=== PATIENT | female | born 1955 | race Native Hawaiian/Other Pacific Islander ===

== ENCOUNTER → 2017-04-28 | Outpatient (CLI) | payer MEDICARE, MEDICAID ==
[~2017-04-28] VITALS: Ht 162.6 cm; Wt 74.8 kg
[~2017-04-28] MED LIST: ASPIR 8181 MG PO; LANTUS SUBQ; MELATONIN1 MG; MILK OF MA2400 MG/10; MULTI VITAMIN1 EACH PO; NOVOLOG100 UNIT/M SUBQ; RENA-VITE TABL0.8 MG PO; RENAL-VITE TAB0.8 MG PO; SENOKOT-S1 TA2 PO; SYNTHROID25 MCG PO; TRAZODONE HCL50 MG; VITAMIN D35000 UNI1 PO; ZOCOR20 MG PO
[2017-04-28 07:59] VITALS: BP 95/52
[2017-04-28 09:34] VITALS: BP 113/64
[2017-04-28 09:49] VITALS: BP 110/67
[2017-04-28 10:00] VITALS: BP 118/65
--- NOTE | 2017-05-06 08:11 | OP ---
[facility] [address] [place] [address] OPERATIVE REPORT Name: KERRI LOYD Room: [facility]#: [id number] Admission: 04/28/17 Attend Phys: Juliano Grissom Discharge: Date of : 53 Report #: [id number] THIS REPORT FOR: //name// CC: José Luis Segura DATE OF SERVICE: 04/28/2017 PREOPERATIVE DIAGNOSES: End-stage renal disease, requiring hemodialysis with recurrent cephalic arch stenosis. POSTOPERATIVE DIAGNOSES: End-stage renal disease, requiring hemodialysis with recurrent cephalic arch stenosis. SURGEON: José Luis Long DO [employer]TER: None. PROCEDURE: 1. Ultrasound-guided access, right upper extremity AV fistula. 2. Diagnostic fistulogram, central and peripheral. 3. Angioplasty of cephalic vein fistula and cephalic arch with Bard Ultraverse 8 mm x 40 mm angioplasty balloon. 4. Drug-coated balloon angioplasty of cephalic vein with 8 mm x 60 Lutonix. 5. Angioplasty of cephalic arch with drug-coated balloon angioplasty of cephalic arch with 10 x 40 Lutonix angioplasty balloon. ESTIMATED BLOOD LOSS: Minimal. SPECIMEN: None. COMPLICATIONS: None. CONDITION: Stable. DISPOSITION: Home. INDICATIONS FOR THE PROCEDURE AND CONSENT: The patient is a 62-year-old female with end-stage renal disease, requiring hemodialysis. She has had difficulty with recurrent cephalic arch stenoses. She had a fistulogram several weeks ago with angioplasty and the lesion was fairly resistance and has had multiple recurrences. Recommendation for repeat fistulogram with drug-coated balloon angioplasty and possible stent was made. Risks and benefits were discussed, infection, bleeding, damage to the fistula, need for additional procedures, including revision, tunneled dialysis catheter, or new access. The patient wished to proceed, was consented [place] [address] OPERATIVE REPORT Name: KERRI LOYD Room: [facility]#: [id number] Admission: 04/28/17 Attend Phys: Juliano Grissom Discharge: Date of : 53 Report #: [id number] PROCEDURE IN DETAIL: After timeout was performed, the patient was placed in supine position with sterile prep and drape of the right upper extremity. Ultrasound was utilized to identify the cephalic vein proximally on the fistula above the antecubital fossa, a 5-Marshallese micropuncture sheath placed. A fistulogram was performed distally, which demonstrated severe stenosis prior to the cephalic vein stent that was greater than 80%. There was also recurrent stenosis of the cephalic arch of approximately 90%; otherwise, cephalic vein, arch and subclavian veins all appeared widely patent without flow limitation or stenosis. I then exchanged for a 6-Marshallese sheath and advanced the Glidewire beyond those stenoses, angioplasty with the 8 x 4 cm balloon was then performed in both these areas. Repeat fistulogram was performed. This demonstrated good radiographic result with improvement of the stenosis of the cephalic arch although it's a larger caliber ____. I felt that both these areas should be treated with drug-coated balloon to hopefully prevent rapid recurrence. An 8 x 4 Lutonix was advanced into position of the cephalic vein stenosis and angioplasty performed and held for 3 minutes. During this angioplasty, I performed a retrograde fistulogram, which did demonstrate relative narrowing of the inflow anastomosis, does not appear to be flow limiting. The patient does have a good thrill and I did not feel this will require treatment at this time, although it should be kept in mind if her flows during dialysis should slow. I then deflated and removed the Lutonix balloon and advanced a 10 x 4 cm Lutonix into the cephalic arch area and angioplasty was performed and held for 3 minutes to deploy the drug. This was then deflated. Repeat angiogram was performed which demonstrated excellent radiographic result without flow limitation or stenosis within these 2 areas. The sheath was then removed and pressure was held for hemostasis. The patient tolerated the procedure well. Lap, needle and instrument counts correct. <ELECTRONICALLY SIGNED> By: José Luis Long DO 05/06/17 0811 [id number] Luis Long DO /nt
== END | disposition home or self-care (01) ==
LOC: M.INT 06:23
DX: T82.858A Stenosis of other vascular prosthetic devices, implants and grafts, initial encounter (principal); N18.6 End stage renal disease; I12.0 Hypertensive chronic kidney disease with stage 5 chronic kidney disease or end stage renal disease; E11.22 Type 2 diabetes mellitus with diabetic chronic kidney disease; Z86.73 Personal history of transient ischemic attack (TIA), and cerebral infarction without residual deficits; Z79.82 Long term (current) use of aspirin; Z79.899 Other long term (current) drug therapy; Z98.890 Other specified postprocedural states; Y83.8 Other surgical procedures as the cause of abnormal reaction of the patient, or of later complication, without mention of misadventure at the time of the procedure